=== PATIENT | male | born 1975 | race Caucasian/White ===

== ENCOUNTER → 2017-02-28 | Outpatient (CLI) | payer SELFPAY ==
[~2017-02-28] MED LIST: NORCO 5-325 MG1 TAB PO; OXACILLIN SODIUM IV; OXYCODON-ACETA1 EAC1 PO; TENORMIN50 MG PO; VALIUM5 MG PO
== END | disposition disaster alternative care site (69) ==
LOC: GRAD 07:45
DX: R20.0 Anesthesia of skin (principal); M51.26 Other intervertebral disc displacement, lumbar region; M50.321 Other cervical disc degeneration at C4-C5 level; M51.36 Other intervertebral disc degeneration, lumbar region; M48.06 Spinal stenosis, lumbar region